=== PATIENT | female | born 1970 | race African-American/Black ===

== ENCOUNTER 2018-12-23 21:35 | Emergency (ER) | payer OTHER ==
[~2018-12-23] VITALS: Ht 167.6 cm; Wt 78.0 kg
[~2018-12-23 21:35] MED LIST: ATENOLOL; HCTZ
[2018-12-24] MEDS ORDERED: SODIUM CHLORIDE 0.9% 1,000 ML IV ONE (00:22)
[2018-12-24 01:05] LABS: CLARITY URINE TURBID (CLEAR); COLOR URINE DARK YELLOW (YELLOW); KETONES URINE 1+ (NEGATIVE); LEUKOCYTE ESTERASE URINE 1+ (NEGATIVE); NITRITE URINE NEGATIVE (NEGATIVE); OCCULT BLOOD URINE TRACE (NEGATIVE); PROTEIN URINE 2+ (NEGATIVE); SPECIFIC GRAVITY URINE 1.017 (1.005-1.030)
[2018-12-24 01:10] LABS: CHLORIDE 96 mEq/L (98-107)
[2018-12-24 01:14] LABS: ETHANOL BLOOD < 10 mg/dL
[2018-12-24 01:19] LABS: BASOPHILS % 0.5 % (0.0-2.0); EOSINOPHILS % 0.7 % (0.0-5.0); HEMATOCRIT. 37.5 % (36.0-48.0); HEMOGLOBIN. 12.4 g/dL (12.0-16.0); LYMPHOCYTES % 23.4 % (20.0-50.0); MEAN CORPUSCULAR VOLUME 94.1 fL (81.0-99.0); MEAN PLATELET VOLUME 9.4 fl (7.4-10.4); MONOCYTES % 4.8 % (2.0-8.0); NEUTROPHILS % 70.6 % (40.0-76.0); PLATELET 262 x1000/uL (130-400); RED BLOOD CELL COUNT 3.99 mill/uL (4.2-5.4)
[2018-12-24 01:27] LABS: *AMPHETAMINES SCREEN URINE NEGATIVE (NEGATIVE); *BARBITURATES SCREEN URINE NEGATIVE (NEGATIVE); *BENZODIAZEPINES SCREEN URINE NEGATIVE (NEGATIVE); *COCAINE SCREEN URINE NEGATIVE (NEGATIVE); OPIATES URINE SCREEN NEGATIVE (NEGATIVE)
[2018-12-24 01:28] LABS: CANNABINOID URINE SCREEN NEGATIVE (NEGATIVE); METHADONE URINE SCREEN NEGATIVE (NEGATIVE); PHENCYCLIDINE URINE SCREEN NEGATIVE (NEGATIVE)
[2018-12-24 08:14] VITALS: BP 126/75
== END 2018-12-24 08:30 | disposition short-term general hospital (02) ==
LOC: ER 21:35 → CANBEDREQ 12-24 16:16
DX: N17.9 Acute kidney failure, unspecified (principal); R42 Dizziness and giddiness; I10 Essential (primary) hypertension; F17.210 Nicotine dependence, cigarettes, uncomplicated; F99 Mental disorder, not otherwise specified
CPT/HCPCS: 36415; 71045; 80053; 80305; 80320; 81003; 81025; 84484; 85025; 93005; 96360; 96361; 99285; J7030; G0480

== ENCOUNTER 2019-08-07 12:50 | Emergency (ER) | payer OTHER ==
[~2019-08-07] VITALS: Ht 182.9 cm; Wt 89.0 kg
[2019-08-07 13:12] VITALS: BP 153/77
[2019-08-07] MEDS ORDERED: ACETAMINOPHEN WITH CODEINE 300/30MG TABLET PO ONE (14:00)
[2019-08-07] MEDS ORDERED: AMOXICILLIN 500 MG CAPSULE PO ONE (14:00)
[2019-08-07] MEDS ORDERED: AMOXICILLIN 250MG CAPSULE PO ONE (14:12)
== END 2019-08-07 14:34 | disposition home or self-care (01) ==
LOC: ER 13:38
DX: K04.7 Periapical abscess without sinus (principal); I10 Essential (primary) hypertension; Z98.890 Other specified postprocedural states
CPT/HCPCS: 99283

== ENCOUNTER 2020-08-14 01:18 | Emergency (ER) | payer OTHER ==
[~2020-08-14] VITALS: Ht 182.9 cm; Wt 94.0 kg
[~2020-08-14 01:18] MED LIST changes: -ATENOLOL
[2020-08-14 05:07] LABS: CLARITY URINE CLEAR (CLEAR); COLOR URINE YELLOW (YELLOW); KETONES URINE NEGATIVE (NEGATIVE); LEUKOCYTE ESTERASE URINE NEGATIVE (NEGATIVE); NITRITE URINE NEGATIVE (NEGATIVE); OCCULT BLOOD URINE TRACE (NEGATIVE); PH URINE 5.5 (4.5-8.0); PROTEIN URINE NEGATIVE (NEGATIVE); SPECIFIC GRAVITY URINE 1.021 (1.005-1.030); UROBILINOGEN URINE 0.2 E.U./dL (0.2-1.0)
[2020-08-14 06:01] VITALS: BP 140/74
== END 2020-08-14 06:02 | disposition home or self-care (01) ==
LOC: ER 01:18
DX: L85.3 Xerosis cutis (principal); R68.2 Dry mouth, unspecified; I10 Essential (primary) hypertension; F17.210 Nicotine dependence, cigarettes, uncomplicated; Z98.890 Other specified postprocedural states
CPT/HCPCS: 81003; 99283